=== PATIENT | male | born 1980 | race Caucasian/White ===

== ENCOUNTER → 2019-08-06 | Emergency (ER) | payer BC, OTHER ==
[~2019-08-06] VITALS: Ht 170.2 cm; Wt 68.0 kg
[~2019-08-06] MED LIST: IBUPROFEN600 M1 ORAL
--- NOTE | 2019-08-06 20:20 | NUR ---
ED Nurse Note: Patient walked into the ED with c/o right shoulder dislocation after putting a car seat. Per patient this happened multiple times and was having rehab for his shoulder. Patient is AAOx4 and ambulatory. Denies any other injury/trauma.
--- NOTE | 2019-08-06 20:22 | NUR ---
ED Nurse Note: ERMD at bedside. Reduced the right shoulder using Lazo technique
--- NOTE | 2019-08-06 20:25 | Emergency Room Report ---
History of Present Illness General Chief Complaint: Upper Extremity Injury Source: Patient Present Illness HPI Patient is a 39-year-old male presents after increased right-sided shoulder pain. Reports having dislocated his shoulder while attempting to put in a car seat. Reports having prior multiple dislocations in the past. Injury occurred just prior to arrival. He denies any other locations of pain. Allergies: Coded Allergies: No Known Allergies (Unverified , 08/06/19) COVID-19 Screening Contact w/high risk pt: No Recent Travel to affected area: No Experienced COVID-19 symptoms?: No COVID-19 Testing performed EXECUTIVE ASST: No Patient History Reviewed Nursing Documentation: PMH: Agreed; PSxH: Agreed Review of Systems All Other Systems: negative except mentioned in HPI Physical Exam Vital Signs Date Time Temp Pulse Resp B/P (MAP) Pulse Ox O2 Delivery O2 Flow Rate FiO2 08/06/19 20:19 Room Air General Appearance: well appearing, no apparent distress, alert, GCS 15 Head: normocephalic, atraumatic ENT: hearing grossly normal, normal voice Neck: full range of motion, supple Respiratory: no respiratory distress, speaking full sentences Cardiovascular #1: normal peripheral pulses, regular rate, rhythm Gastrointestinal: normal inspection Musculoskeletal: no calf tenderness Neurologic: alert, motor strength/tone normal, oriented x3, normal gait, other - Anterior fullness and held in abduction Psychiatric: mood/affect normal Skin: no rash Medical Decision Making Diagnostic Impression: Primary Impression: Recurrent shoulder dislocation ER Course Patient presented for shoulder pain. Differential diagnosis include was not limited to fracture, dislocation, contusion among others. Patient has what appears to be an anterior shoulder dislocation. Patient shoulder was reduced with Lazo technique. Patient tolerated this well. X-ray imaging was ordered after patient shoulder was reduced. Patient has had multiple dislocations in the past. Patient was advised that he needs operative repair. Currently pending referral. Patient was placed in a shoulder immobilizer and advised to follow-up with orthopedics. He is to return if worse. Last Vital Signs Date Time Temp Pulse Resp B/P (MAP) Pulse Ox O2 Delivery O2 Flow Rate FiO2 08/06/19 20:19 Room Air Status: improved Disposition: HOME, SELF-CARE Condition: Stable Scripts Ibuprofen* (MOTRIN*) 600 Mg Tablet 600 MG ORAL Q8H PRN for FOR PAIN, #30 TAB 0 Refills Prov: Ian Griffin MD 08/06/19 Ian Griffin MD Aug 06, 2019 20:25
--- NOTE | 2019-08-06 20:27 | NUR ---
ED Nurse Note: wiring technician at bedside
--- NOTE | 2019-08-06 20:30 | NUR ---
ED Nurse Note: Arm sling applied to right shoulder
--- NOTE | 2019-08-06 20:41 | NUR ---
ER DISCHARGE NOTE: Patient is cleared to be discharged per ERMD, pt is aox4, on room air, with stable vital signs. pt was given dc and prescription instructions, pt was able to verbalize understanding, pt id bandremoved. pt is able to ambulate with steady gait with sling on right shoulder. pt took all belongings.
[2019-08-06 20:42] VITALS: BP 124/82
--- NOTE | 2019-08-07 08:40 | Diagnostic Imaging Report ---
Indication: Right shoulder pain Technique: 3 views of the right shoulder Comparison: none Findings: No acute fractures. No dislocations. The joint spaces are preserved Impression: Negative
== END | disposition home or self-care (01) ==
LOC: EMR 20:45
DX: S43.004A Unspecified dislocation of right shoulder joint, initial encounter (principal); X58.XXXA Exposure to other specified factors, initial encounter; Y93.9 Activity, unspecified; Y92.9 Unspecified place or not applicable
CPT/HCPCS: 99283